=== PATIENT | female | born 1990 | race African-American/Black ===

== ENCOUNTER 2019-04-28 12:53 | Emergency (ER) | payer SELFPAY ==
[~2019-04-28] VITALS: Ht 175.2 cm; Wt 67.1 kg
[~2019-04-28 12:53] MED LIST: AMOXICILLIN500 MG PO; ZOFRAN ODT4 MG SL
[2019-04-28 13:50] LABS: BILIRUBIN NEGATIVE (NEGATIVE); BLOOD NEGATIVE (NEGATIVE); CLARITY SL CLOUDY (CLEAR); COLOR YELLOW (YELLOW); GLUCOSE NEGATIVE (NEGATIVE); KETONE NEGATIVE (NEGATIVE); LEUKO ESTERASE 2+ (NEGATIVE); NITRITE NEGATIVE (NEGATIVE); SPECIFIC GRAVITY 1.025 (1.005-1.030); UROBILINOGEN 0.2 E.U./dl (0.2-1.0)
[2019-04-28 13:59] LABS: BACTERIA 2+; EPITHELIAL CELLS TNTC
[2019-05-01 03:04] LABS: GONOCOCCUS BY NAA Negative (Negative)
== END 2019-04-28 14:21 | disposition home or self-care (01) ==
LOC: ED 12:53
PROVIDERS: Nurse Practitioner Family
DX: N89.8 Other specified noninflammatory disorders of vagina (principal); R30.0 Dysuria; Z20.2 Contact with and (suspected) exposure to infections with a predominantly sexual mode of transmission; Z79.2 Long term (current) use of antibiotics

== ENCOUNTER 2019-05-23 08:29 | Emergency (ER) | payer SELFPAY ==
[~2019-05-23] VITALS: Ht 175.2 cm; Wt 67.6 kg
[2019-05-23] MEDS ORDERED: VIBRAMYCIN100 MG PO (08:44)
== END 2019-05-23 08:53 | disposition home or self-care (01) ==
LOC: ED 08:29
DX: Z20.2 Contact with and (suspected) exposure to infections with a predominantly sexual mode of transmission (principal); Z79.2 Long term (current) use of antibiotics

== ENCOUNTER 2019-08-04 11:17 | Emergency (ER) | payer OTHER ==
[~2019-08-04] VITALS: Ht 175.2 cm; Wt 68.0 kg
[~2019-08-04 11:17] MED LIST changes: +VIBRAMYCIN100 MG PO
[2019-08-04] MEDS ORDERED: FLAGYL500 MG PO (12:28)
== END 2019-08-04 12:40 | disposition home or self-care (01) ==
LOC: ED 11:17
DX: N76.0 Acute vaginitis (principal)

== ENCOUNTER 2023-07-14 18:26 | Emergency (ER) | payer OTHER ==
[~2023-07-14] VITALS: Ht 175.2 cm; Wt 79.8 kg
[~2023-07-14 18:26] MED LIST changes: +FLAGYL500 MG PO
== END 2023-07-14 19:29 | disposition home or self-care (01) ==
LOC: ED 18:26
DX: N89.8 Other specified noninflammatory disorders of vagina (principal); Z20.2 Contact with and (suspected) exposure to infections with a predominantly sexual mode of transmission; Z79.899 Other long term (current) drug therapy; Z79.2 Long term (current) use of antibiotics